=== PATIENT | female | born 1985 | race Caucasian/White ===

== ENCOUNTER 2017-01-05 16:02 | Emergency (ER) | payer SELFPAY ==
[~2017-01-05] VITALS: Ht 160 cm; Wt 105.0 kg
[2017-01-05 16:03] VITALS: BP 134/95; PULSE 104; RESP 24; TEMP 97.7; O2SAT 98
--- NOTE | 2017-01-05 16:12 | PD ---
Physical Exam Date Seen by Provider: January 05, 2017 Time Seen by Provider: 16:10 Narrative 31 YOWF C/O L JAW PAIN . POSSIBLE TMJ HAD CORTISONE SHOT SUNDAY BY PMD. NO DENTAL PAIN. VSS wating for bed asignment Data Data Last Documented VS Vital Signs Date Time Temp Pulse Resp B/P Pulse Ox O2 Delivery O2 Flow Rate FiO2 01/05/17 16:03 97.7 104 24 134/95 98 Room Air [facility] Medical Record Reviewed: No Supervised Visit with VALENTE: Les Grant January 05, 2017 16:12
--- NOTE | 2017-01-05 16:18 | PD ---
HPI . left sided jaw pain radiating to ear and head Chief Complaint: Oral / Dental Pain or Problem Time Seen by Provider: 16:18 Travel History International Travel<30 days: No Contact w/Intl Traveler<30days: No Traveled to known affect area: No History of Present Illness HPI 31-year-old female here with complaints of left-sided jaw pain that is radiating to her left ear and head. Patient says that she was seen by her primary care provider on Sunday of this week and diagnosed with TMJ disorder. She was given a cortisone injection locally into the jaw, which provided relief for about 24 hours. She tells me that the pain has persisted ever since and now she is in 10/10 pain. She tells me that his agonizing and radiating to her ear and her head. Denies any visual changes or other neuro deficits. She is accompanied by her Arnol. 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 Reported Robaxin (Methocarbamol) 750 Mg Tab 1,500 Mg PO BID Review of Systems General / Constitutional: No: Fever Eyes: No: Visual changes HENT: Positive: Headaches, Earache Cardiovascular: No: Chest Pain or Discomfort Respiratory: No: Shortness of Breath Gastrointestinal: No: Abdominal Pain Genitourinary: No: Dysuria Musculoskeletal: Positive: Pain (jaw pain) Skin: No Rash Neurologic: No: Weakness Psychiatric: No: Depression Endocrine: No: Polydipsia Hematologic/Lymphatic: No: Easy Bruising Physical Exam Narrative GENERAL: AAO x 3, no acute distress, Well-nourished, well-developed patient. SKIN: Warm and dry. No visible rashes or bruising. HEAD: Normocephalic and atraumatic. EYES: No scleral icterus. No injection or drainage. EOM intact, PERRLA ENT: No nasal drainage noted. Mucous membranes pink. Airway patent. Left TM bulging and purulent matter behind the tympanic membrane. No posterior pharynx erythema, edema or exudates. Pain with opening of jaw on left side. Positive popping of the temporomandibular joint on the left > right, no pain with palpation to temporal area NECK: Supple, trachea midline. No JVD. No lymphadenopathy. CARDIOVASCULAR: Regular rate and rhythm without murmurs, gallops, or rubs. RESPIRATORY: Breath sounds equal bilaterally. No accessory muscle use. No rhonchi or rales. GASTROINTESTINAL: Visual inspection normal EXTREMITIES: No cyanosis or edema. NEURO: CN 2-12 intact BACK: Nontender without obvious deformity. No CVA tenderness. PSYCH: AAO x 3, normal affect. Data Data Last Documented VS Vital Signs Date Time Temp Pulse Resp B/P Pulse Ox O2 Delivery O2 Flow Rate FiO2 01/05/17 16:03 97.7 104 24 134/95 98 Room Air Orders Ketorolac Inj (Toradol Inj) (01/05/17 16:30) Orphenadrine Inj (Norflex Inj) (01/05/17 16:30) MDM Medical Decision Making Medical Screen Exam Complete: Yes Emergency Medical Condition: Yes Medical Record Reviewed: Yes Differential Diagnosis TMJ disorder, otitis media, sinus headache, Narrative Course 31-year-old female here with complaints of left-sided jaw pain that is radiating to her left ear and head. Patient says that she was seen by her primary care provider on Sunday of this week and diagnosed with TMJ disorder. She was given a cortisone injection locally into the jaw, which provided relief for about 24 hours. She tells me that the pain has persisted ever since and now she is in 10/10 pain. She tells me that his agonizing and radiating to her ear and her head. Denies any visual changes or other neuro deficits. She is accompanied by her Arnol. Patient seen and examined. She seems to have a combination of TMJ arthralgia along with left otitis media. I will go ahead and treat her with Norflex and Toradol and here for immediate pain relief. She will need to follow-up with her primary care provider and maxillofacial surgeon as well as possibly the dentist. I will send her home with a course of antibiotics and steroids. I do not see any form of infection other than her left ear. Patient verbalized understanding of instructions & questions were answered. I advised them if their condition worsens, please return to the nearest emergency room for further care. Diagnosis Primary Impression: TMJ arthralgia Qualified Code: M26.622 - Arthralgia of left temporomandibular joint Additional Impression: LOM (left otitis media) Qualified Code: H66.002 - Acute suppurative otitis media of left ear without spontaneous rupture of tympanic membrane, recurrence not specified Departure Forms: Tests/Procedures, Work Release Enter return to work date: January 06, 2017 Additional Instructions: Please return to emergency department if your symptoms return or worsen. Follow up with your primary care provider. Take medications as prescribed. Please see a dentist or a maxillofacial surgeon as we discussed. Med/Other Pt SpecificInfo: Prescription(s) given Scripts Methylprednisolone Dosepak (Medrol Dosepak)4 Mg Dspk4 Mg PO DIRECTED #1 DSPK Ref 0 Per Pharmacist direction Prov:Lissy Nuñez MD 01/05/17 Amoxicillin-Clavulanate (Augmentin)875-125 mg [id number] Mg PO BID #20 TAB not for use in CrCl <30 ml/min. Prov:Lissy Nuñez MD 01/05/17 Disposition: 01 DISCHARGE HOME Condition: Stable Kate Payton January 05, 2017 16:18
[2017-01-05] MEDS ORDERED: ROBA750T PO (16:21)
[2017-01-05] MEDS ORDERED: AUGM875T PO (16:25)
[2017-01-05] MEDS ORDERED: KETOROLAC TROMETHAMINE 60 MG/2 ML (IM) VIAL IM ONE (16:30)
[2017-01-05] MEDS ORDERED: ORPHENADRINE INJ 60 MG/2 ML AMP IM ONE (16:30)
[2017-01-05] MEDS ORDERED: MEDR4PAK PO (16:31)
== END 2017-01-05 18:23 | disposition home or self-care (01) ==
LOC: NEPK 16:02
DX: M26.622 Arthralgia of left temporomandibular joint (principal); H66.92 Otitis media, unspecified, left ear; Z72.0 Tobacco use
CPT/HCPCS: 96372; 99283; J1885; J2360